=== PATIENT | female | born 1935 | race Caucasian/White ===

== ENCOUNTER 2023-01-10 19:53 | Emergency (ER) | payer OTHER, MEDICAID ==
[2023-01-10 20:13] VITALS: BP_SYST 131
== END 2023-01-10 20:00 | disposition left against medical advice (07) ==
LOC: SED 19:53
DX: I10 Essential (primary) hypertension (principal); Z53.21 Procedure and treatment not carried out due to patient leaving prior to being seen by health care provider
CPT/HCPCS: 99281

== ENCOUNTER 2023-12-03 11:49 | Emergency (ER) | payer OTHER, MEDICAID ==
[~2023-12-03] VITALS: Ht 152.4 cm; Wt 69.9 kg
[2023-12-03 11:54] VITALS: BP_SYST 182; PULSE 47; RESP 16; TEMP 96.7; O2SAT 98
[2023-12-03 14:00] VITALS: BP_SYST 182; PULSE 47; RESP 16; TEMP 96.7; O2SAT 98
== END 2023-12-03 13:59 | disposition home or self-care (01) ==
LOC: SED 11:49
DX: R00.1 Bradycardia, unspecified (principal); I10 Essential (primary) hypertension; Z79.899 Other long term (current) drug therapy
CPT/HCPCS: 93005; 99283